=== PATIENT | female | born 1960 | race Caucasian/White ===

== ENCOUNTER 2020-04-08 10:22 | Day surgery (SDC) | payer MEDICARE, OTHER ==
[~2020-04-08 10:22] MED LIST: Lactated Ringers 1,000 ML IV SCH; Lidocaine 1% 4 ML ONE; Lidocaine 1%/Sod Bicarbonate in NS 8.4% 1 ML Syringe IDERM PRN; Propofol 200 MG/20 ML SDV ONE; Sodium Chloride 0.9% 10 ML Syringe FLUSH PRN; Tetracaine HCl/PF 0.5% 4 ML Bottle EYERT SCH
--- NOTE | 2020-04-08 10:47 | PCM.PREANE ---
Preanesthetic Assessment - Anesthesia/Transfusion/Family Hx Anesthesia History: Prior Anesthesia Without Reaction Family History of Anesthesia Reaction: No Transfusion History: No Prior Transfusion(s) Intubation History: Unknown - Review of Systems General: No Symptoms Pulmonary: No Symptoms, Other (right side "3 broken ribs") Cardiovascular: Dyspnea on Exertion Gastrointestinal: No Symptoms Neurological: No Symptoms Other: Reports: Diabetes, Thyroid Problems - Physical Assessment NPO Status Date: 04/07/20 NPO Status Time: 00:00 Height: 1.63 m Weight: 68.946 kg ASA Class: 2 Mental Status: Alert & Oriented x3 Airway Class: Mallampati = 2 Dentition: Reports: Dentures Thyro-Mental Finger Breadths: 2 Mouth Opening Finger Breadths: 2 ROM/Head Extension: Full Lungs: Clear to Auscultation, Normal Respiratory Effort Cardiovascular: Regular Rate, Regular Rhythm - Lab Values: Laboratory Last Values SARS Virus RNA (PCR) Negative (NEGATIVE) 04/07/20 13:47 - Allergies Allergies/Adverse Reactions: Allergies Allergy/AdvReac Type Severity Reaction Status Date / Time No Known Allergies Allergy Verified 04/07/20 16:38 - Blood Blood Available: No Product(s) Available: None - Anesthesia Plan Pre-Op Medication Ordered: Beta Osmel Beta Osmel: Metoprolol Med Last Dose Date: 04/07/20 Med Last Dose Time: 21:00 - Acknowledgements Anesthesia Type Planned: MAC Pt an Appropriate Candidate for the Planned Anesthesia: Yes Alternatives and Risks of Anesthesia Discussed w Pt/Guardian: Yes Pt/Guardian Understands and Agrees with Anesthesia Plan: Yes PreAnesthesia Questionnaire - HOME MEDS Home Medications: Home Meds Dulaglutide [Trulicity] 1 dose SQ ASDIRECTED 04/07/20 [History] Empagliflozin [Jardiance] 25 mg PO DAILY 04/07/20 [History] Ferrous Fumarate/Ascorbic Acid [Cristhian-Sequels 65-25 mg Caplet] 1 tab PO DAILY [History] Levothyroxine Sodium [Levoxyl] 50 mcg PO DAILY 04/07/20 [History] Metoprolol Succinate 25 mg PO DAILY 04/07/20 [History] Multivitamin [Daily Amos] 1 tab PO DAILY 04/07/20 [History] Omeprazole 20 mg PO DAILY 04/07/20 [History] Rosuvastatin Calcium 20 mg PO DAILY 04/07/20 [History] Vortioxetine Hydrobromide [Trintellix] 20 mg PO DAILY 04/07/20 [History] lisinopriL [Lisinopril] 2.5 mg PO DAILY 04/07/20 [History] metFORMIN [Glucophage XR] 500 mg PO ASDIRECTED 04/07/20 [History] - CURRENT (IN HOUSE) MEDS Current Meds: Current Medications Erythromycin (Erythromycin 0.5% Ophth Oint) 1 gm EYERT ONETIME MILDRED Stop: 04/08/20 12:00 Lactated Ringer's (Ringers, Lactated) 1,000 mls @ 125 mls/hr IV ASDIRECTED MILDRED Stop: 04/08/20 23:00 Lidocaine/Sodium Bicarbonate (Buffered Lidocaine 1% In Ns 8.4%) 0.25 ml IDERM ONETIME PRN PRN Reason: Prior to IV Start Stop: 04/08/20 18:00 Sodium Chloride (Saline Flush) 10 ml FLUSH ASDIRECTED PRN PRN Reason: Keep Vein Open Stop: 04/08/20 18:00 Tetracaine HCl (Tetracaine 0.5% Steri-Unit Sindi) 0 ml EYERT ASDIRECTED MILDRED Stop: 04/09/20 13:00 Discontinued Medications Lidocaine HCl (Xylocaine-Mpf 1%) Confirm Administered Dose 4 mls @ as directed .ROUTE .STK-MED ONE Stop: 04/08/20 09:13 Propofol (Diprivan 20 Ml) Confirm Administered Dose 200 mg .ROUTE .STK-MED ONE Stop: 04/08/20 09:13
[2020-04-08] MEDS: Erythromycin Base 0.5% Ophth Oint 1 GM Tube EYERT SCH ×2 (11:24→11:45)
[2020-04-08] MEDS ORDERED: Lidocaine 1% with EPINEPHrine 1:100,000 20 ML MDV ONE (11:32)
[2020-04-08] MEDS ORDERED: Propofol 200 MG/20 ML SDV ONE (11:55)
[2020-04-08] MEDS ORDERED: ePHEDrine Sulfate/0.9% NaCl/Pf 25 MG/5 ML SYRINGE IV ONE (12:01)
--- NOTE | 2020-04-08 12:13 | PCM48HPAN ---
Post Anesthesia Note - EVALUATION WITHIN 48HRS OF ANESTHETIC Vital Signs in Normal Range: Yes Patient Participated in Evaluation: Yes Respiratory Function Stable: Yes Airway Patent: Yes Cardiovascular Function Stable: Yes Hydration Status Stable: Yes Pain Control Satisfactory: Yes Nausea and Vomiting Control Satisfactory: Yes Mental Status Recovered: Yes Vital Signs: Last Vital Signs Temp 36.4 C 04/08/20 10:10 Pulse 88 04/08/20 10:10 Resp 16 04/08/20 10:10 BP 112/62 04/08/20 10:10 Pulse Ox 95 04/08/20 10:10
== END 2020-04-08 13:00 | disposition home or self-care (01) ==
LOC: JD.SDS 10:22
PROVIDERS: ATTEND Ophthalmology
DX: H02.032 Senile entropion of right lower eyelid (principal); E11.36 Type 2 diabetes mellitus with diabetic cataract; H25.813 Combined forms of age-related cataract, bilateral; H35.371 Puckering of macula, right eye; H02.834 Dermatochalasis of left upper eyelid; H02.831 Dermatochalasis of right upper eyelid; F41.9 Anxiety disorder, unspecified; F32.9 Major depressive disorder, single episode, unspecified; H16.223 Keratoconjunctivitis sicca, not specified as Sjogren's, bilateral; H16.103 Unspecified superficial keratitis, bilateral; Z20.828 Contact with and (suspected) exposure to other viral communicable diseases; Z79.84 Long term (current) use of oral hypoglycemic drugs; Z79.899 Other long term (current) drug therapy
CPT/HCPCS: 67924; A9270; J0171; J2001; J2704; J7120; U0002

== ENCOUNTER 2023-05-30 11:50 | Observation (INO) | payer MEDICARE ==
[2023-05-30 12:43] LABS: EOSINOPHILS ABSOLUTE AUTO 0.02 K/mm3 (0.04-0.36); EOSINOPHILS PERCENT AUTO 0.5 (0.7-5.8); HEMATOCRIT 45.2 % (34.1-44.9); IMMATURE GRAN ABSOLUTE AUTO 0.04 K/mm3 (0.00-0.10); LYMPHOCYTES ABSOLUTE AUTO 0.26 K/mm3 (1.18-3.74); LYMPHOCYTES PERCENT AUTO 6.5 % (19.3-51.7); MEAN CORPUSCULAR HEMOGLOBIN 31.5 pg (25.6-32.2); MEAN CORPUSCULAR HGB CONC 33.2 g/dl (32.2-35.5); MEAN PLATELET VOLUME 9.5 fl (9.4-12.3); MONOCYTES ABSOLUTE AUTO 0.22 K/mm3 (0.24-0.36); MONOCYTES PERCENT AUTO 5.5 % (4.7-12.5); NEUTROPHILS ABSOLUTE AUTO 3.49 K/mm3 (1.56-6.13); NEUTROPHILS PERCENT AUTO 86.5 % (34.0-71.1); PLATELET COUNT,PLT 207 K/mm3 (182-369); RED BLOOD CELL COUNT 4.76 M/mm3 (3.98-5.22); WHITE BLOOD CELL COUNT,WBC 4.03 K/mm3 (3.98-10.04)
[2023-05-30] MEDS ORDERED: Sodium Chloride 0.9% 1,000 ML IV ONE (12:56)
[2023-05-30 13:04] LABS: BASE EXCESS ARTERIAL -7.8 (-2-2.0); BICARBONATE,ARTERIAL 17.4 meq/L (22.0-26.0); O2 SATURATION ARTERIAL 95.5 % (96.0-97.0); PCO2 ARTERIAL 36.1 mmHg (35.0-45.0)
[2023-05-30 13:12] LABS: ALBUMIN 3.5 g/dl (3.4-5.0); BILIRUBIN TOTAL 0.9 mg/dL (0.2-1.0); BUN/CREATININE RATIO 6.4 (14-18); CREATININE 1.1 mg/dL (0.55-1.02); EST CRCL DRUG DOSING (CG) 42.74 mL/min; PROTEIN TOTAL,TP 7.1 g/dl (6.4-8.2)
[2023-05-30 13:18] LABS: LACTIC ACID 5.2 mmol/L (0.4-2.0)
[2023-05-30 13:24] LABS: ANION GAP 18.6 (5-15); CALCIUM 9.1 mg/dL (8.5-10.1)
[2023-05-30 13:30] LABS: POTASSIUM,K 4.6 mEq/L (3.5-5.1)
[2023-05-30] MEDS ORDERED: Iopamidol 612 MG/ML 100 ML Bottle IVPUSH ONE (14:19)
[2023-05-30 15:24] LABS: APPEARANCE,URINE CLEAR (Clear); BILIRUBIN,URINE NEGATIVE (Negative); COLOR,URINE LIGHT YELLOW (Yellow); GLUCOSE,URINE 2+ (Negative); KETONES,URINE 1+ (Negative); LEUKOCYTE ESTERASE,URINE NEGATIVE (Negative); NITRITE,URINE NEGATIVE (Negative); OCCULT BLOOD,URINE NEGATIVE (Negative); PROTEIN,URINE NEGATIVE (Negative); UROBILINOGEN,URINE 0.2 (0.2-1.0)
[2023-05-30] MEDS ORDERED: Ondansetron 4 MG Tab.DIS PO PRN (15:52)
[2023-05-30] MEDS ORDERED: Acetaminophen 325 MG Tab PO PRN (15:52)
[2023-05-30] MEDS ORDERED: oxyCODONE 5 MG Tab PO PRN (15:52)
[2023-05-30] MEDS ORDERED: Docusate Sodium 100 MG Cap PO PRN (15:52)
[2023-05-30] MEDS ORDERED: Temazepam 7.5 MG Cap PO PRN (15:52)
[2023-05-30] MEDS ORDERED: Ondansetron 4 MG/2 ML SDV IV PRN (15:52)
[2023-05-30] MEDS ORDERED: Sodium Chloride 0.9% 1,000 ML IV SCH (16:15)
[2023-05-30] MEDS: Heparin Sodium 5,000 Units/ML Vial SUBCUT SCH (16:57)
[2023-05-30] MEDS: Insulin Regular, Human 100 Units/ML 3 ML Vial SUBCUT SCH (18:46)
[2023-05-30] MEDS: Lactated Ringers 1,000 ML IV SCH (20:12)
[2023-05-30] MEDS ORDERED: Lactated Ringers 1,000 ML IV ONE (21:59)
[2023-05-31] MEDS: Heparin Sodium 5,000 Units/ML Vial SUBCUT SCH ×2 (01:18→08:13)
[2023-05-31 02:01] LABS: LACTIC ACID 3.1 mmol/L (0.4-2.0)
[2023-05-31] MEDS: Lactated Ringers 1,000 ML IV SCH ×2 (02:39→10:42)
[2023-05-31 04:23] LABS: BASOPHILS ABSOLUTE AUTO 0.01 K/mm3 (0.01-0.08); BASOPHILS PERCENT AUTO 0.1 % (0.1-1.2); EOSINOPHILS ABSOLUTE AUTO 0.03 K/mm3 (0.04-0.36); EOSINOPHILS PERCENT AUTO 0.4 (0.7-5.8); HEMATOCRIT 32.2 % (34.1-44.9); HEMOGLOBIN 10.7 gm/dl (11.2-15.7); IMMATURE GRAN ABSOLUTE AUTO 0.01 K/mm3 (0.00-0.10); IMMATURE GRAN PERCENT AUTO 0.1 % (<=1.0); LYMPHOCYTES ABSOLUTE AUTO 0.89 K/mm3 (1.18-3.74); LYMPHOCYTES PERCENT AUTO 11.5 % (19.3-51.7); MEAN CORPUSCULAR HEMOGLOBIN 31.7 pg (25.6-32.2); MEAN CORPUSCULAR HGB CONC 33.2 g/dl (32.2-35.5); MEAN CORPUSCULAR VOLUME 95.3 fl (79.4-94.8); MEAN PLATELET VOLUME 9.3 fl (9.4-12.3); MONOCYTES ABSOLUTE AUTO 0.87 K/mm3 (0.24-0.36); MONOCYTES PERCENT AUTO 11.3 % (4.7-12.5); NEUTROPHILS ABSOLUTE AUTO 5.91 K/mm3 (1.56-6.13); NEUTROPHILS PERCENT AUTO 76.6 % (34.0-71.1); PLATELET COUNT,PLT 155 K/mm3 (182-369); RED BLOOD CELL COUNT 3.38 M/mm3 (3.98-5.22); WHITE BLOOD CELL COUNT,WBC 7.72 K/mm3 (3.98-10.04)
[2023-05-31 04:47] LABS: ALBUMIN 2.5 g/dl (3.4-5.0); ANION GAP 10.2 (5-15); BILIRUBIN TOTAL 0.7 mg/dL (0.2-1.0); CALCIUM 7.9 mg/dL (8.5-10.1); EST CRCL DRUG DOSING (CG) 47.01 mL/min; MAGNESIUM 1.6 mg/dL (1.8-2.4); POTASSIUM,K 4.2 mEq/L (3.5-5.1); PROTEIN TOTAL,TP 5.1 g/dl (6.4-8.2)
[2023-05-31] MEDS ORDERED: Calcium Carbonate 500 MG Tab.Chew PO PRN (08:34)
[2023-05-31] MEDS ORDERED: Saccharomyces Boulardii (Probiotic) 250 MG Cap PO SCH (09:00)
[2023-05-31] MEDS ORDERED: Metoprolol Succinate 25 MG Tab.ER PO SCH (09:00)
[2023-05-31] MEDS ORDERED: Levothyroxine 50 MCG Tab PO SCH (09:00)
[2023-05-31] MEDS ORDERED: Aspirin 81 MG Tab.Chew PO SCH (09:00)
[2023-05-31] MEDS ORDERED: Empagliflozin 25 MG Tab PO SCH (09:00)
[2023-05-31] MEDS ORDERED: Cholecalciferol (Vitamin D3) 25 MCG Tab PO SCH (09:00)
[2023-05-31] MEDS ORDERED: Losartan 25 MG Tab PO SCH (09:00)
[2023-05-31] MEDS ORDERED: Psyllium Husk Powder Sugar Free 5.85 GM Packet PO PRN (09:07)
[2023-05-31] MEDS: Insulin Regular, Human 100 Units/ML 3 ML Vial SUBCUT SCH ×2 (09:53→12:51)
[2023-05-31] MEDS ORDERED: metFORMIN 500 MG Tab PO SCH ×2 (10:00→10:30)
[2023-05-31] MEDS ORDERED: Pantoprazole 40 MG Tab.CR PO SCH (10:00)
[2023-05-31] MEDS ORDERED: Rosuvastatin 10 MG Tab PO SCH (10:00)
[2023-05-31] MEDS ORDERED: Meloxicam 7.5 MG Tab PO SCH (10:30)
[2023-05-31] MEDS ORDERED: Ascorbic Acid 500 MG Tab PO SCH (12:00)
[2023-05-31] MEDS ORDERED: Ferrous Sulfate 324 MG Tab.EC PO SCH (12:00)
== END 2023-05-31 15:00 | disposition home or self-care (01) ==
LOC: JD.ED 11:50 → JD.MS 15:52
PROVIDERS: ADMIT Internal Medicine; ATTEND Internal Medicine
DX: E86.0 Dehydration (principal); I95.9 Hypotension, unspecified; U07.1 COVID-19; R11.2 Nausea with vomiting, unspecified; E87.20 Acidosis, unspecified; E11.9 Type 2 diabetes mellitus without complications; I10 Essential (primary) hypertension; Z79.82 Long term (current) use of aspirin; Z79.899 Other long term (current) drug therapy; Z79.84 Long term (current) use of oral hypoglycemic drugs; Z79.890 Hormone replacement therapy
CPT/HCPCS: 36415; 36600; 51701; 71046; 74177; 80053; 81003; 82009; 82803; 82947; 83605; 83735; 84484; 85025; 87040; 96361; 96372; 96374; 99285; A9270; J1644; J1815; J2405; J7030; J7120; Q9967; U0002; 93010; G0378